=== PATIENT | female | born 1980 | race Caucasian/White ===

== ENCOUNTER 2020-10-13 10:11 | Emergency (ER) | payer SELFPAY ==
[~2020-10-13] VITALS: Ht 165.1 cm; Wt 71.2 kg
[~2020-10-13 10:11] MED LIST: IBUP-1222 PO; OXYC1TAB14 PO
[2020-10-13 10:18] VITALS: BP 125/85
== END 2020-10-13 12:31 | disposition left against medical advice (07) ==
LOC: ED 12:25
DX: R07.9 Chest pain, unspecified (principal); M54.9 Dorsalgia, unspecified; Z53.21 Procedure and treatment not carried out due to patient leaving prior to being seen by health care provider

== ENCOUNTER 2020-10-14 08:09 | Emergency (ER) | payer OTHER ==
[~2020-10-14] VITALS: Ht 165.1 cm; Wt 72.0 kg
[2020-10-14 08:12] VITALS: BP 123/77
--- NOTE | 2020-10-14 08:52 | NUR ---
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
[2020-10-14] MEDS ORDERED: KETOROLAC 30 MG/1 ML ONE (09:19)
[2020-10-14] MEDS ORDERED: KETOROLAC 30 MG/1 ML IM ONE (09:30)
--- NOTE | 2020-10-14 09:36 | NUR ---
PT CHART REVIEWED AND PLACED FOR RECHECK.
== END 2020-10-14 11:13 | disposition home or self-care (01) ==
LOC: ED 09:06
DX: S29.012A Strain of muscle and tendon of back wall of thorax, initial encounter (principal); R07.89 Other chest pain; V49.09XA Driver injured in collision with other motor vehicles in nontraffic accident, initial encounter; Y93.89 Activity, other specified; Y92.89 Other specified places as the place of occurrence of the external cause; Y99.8 Other external cause status
CPT/HCPCS: 71045; 96372; 99283; J1885